=== PATIENT | female | born 1985 | race Two or more races ===

== ENCOUNTER 2023-06-27 06:26 | Inpatient (IN) | payer OTHER ==
[~2023-06-27] VITALS: Ht 160 cm; Wt 68.0 kg
[2023-06-27] MEDS ORDERED: FOLIC ACID0.8 M1 PO (06:43)
[2023-06-27] MEDS ORDERED: RINGERS SOLUTION,LACTATED 1,000 ML IV STA (07:19)
[2023-06-27 07:39] LABS: HEMATOCRIT 36.1 % (36.0-45.00); HEMOGLOBIN 12.6 g/dL (12.0-15.00); MEAN CELL VOLUME 91.3 fL (80.00-100.00); MEAN CORPUSCULAR HEMOGLOBIN 31.9 pg (27.00-32.0); MEAN CORPUSCULAR HGB CONC 34.9 g/dl (32.0-36.0); PLATELET COUNT 194 K/uL (150-450); RED BLOOD COUNT 3.96 M/uL (4.00-6.00)
[2023-06-27 08:34] LABS: ALBUMIN 4.1 gm/dL (3.4-5.0); BILIRUBIN TOTAL 0.35 mg/dL (0.3-1.2); CALCIUM 9.5 mg/dL (8.5-10.1); CREATININE SERUM 0.68 mg/dL (0.55-1.02); GFR 96.32; GLOBULINA 3.7 G/DL (2.4-3.5); POTASSIUM 3.9 mEq/L (3.5-5.1); TOTAL PROTEIN 7.8 gm/dL (6.4-8.2)
[2023-06-27] MEDS ORDERED: CEFAZOLIN SODIUM 1,000 MG VIAL IV ONE (12:30)
[2023-06-27 13:23] LABS: INR 1.06; PARTIAL THROMBOPLASTIN TIME 25.3 SECONDS (22.0-34.0); PROTHROMBIN TIME 11.1 SECONDS (9.0-11.5)
[2023-06-27] MEDS ORDERED: MEPERIDINE HCL/PF 50 MG/ML VIAL IM SCH (21:08)
[2023-06-27] MEDS ORDERED: PROMETHAZINE HCL 25 MG/ML AMPUL IM SCH (21:08)
[2023-06-28 09:38] LABS: HEMATOCRIT 31.9 % (36.0-45.00); HEMOGLOBIN 11.1 g/dL (12.0-15.00); MEAN CELL VOLUME 91.5 fL (80.00-100.00); MEAN CORPUSCULAR HEMOGLOBIN 31.9 pg (27.00-32.0); MEAN CORPUSCULAR HGB CONC 34.9 g/dl (32.0-36.0); PLATELET COUNT 178 K/uL (150-450); RED BLOOD COUNT 3.49 M/uL (4.00-6.00); RED CELL DISTRIBUTION WIDTH 12.7 % (11.5-14.5)
[2023-06-28] MEDS ORDERED: OxyCODONE HCL/APAP UD (PERCOCET) PO PRN (10:00)
== END 2023-06-29 17:11 | disposition home or self-care (01) | DRG 819 ==
LOC: ER 06:27 → O/R 18:44 → OB/GYN 18:44
PROVIDERS: Emergency Medicine; ADMIT Obstetrics & Gynecology Obstetrics; ATTEND Obstetrics & Gynecology Obstetrics
PROC: 10D20ZZ Extraction of Products of Conception, Ectopic, Open Approach (ICD-10-PCS; 2023-06-27)
PROC: 0UT60ZZ Resection of Left Fallopian Tube, Open Approach (ICD-10-PCS; principal; 2023-06-27 20:15)
DX: O00.102 Left tubal pregnancy without intrauterine pregnancy (principal); Z20.822 Contact with and (suspected) exposure to COVID-19

== ENCOUNTER 2023-09-26 09:28 | Outpatient (CLI) | payer OTHER ==
[~2023-09-26 09:28] MED LIST: FOLIC ACID0.8 M1 PO
== END 2023-09-26 09:32 | disposition home or self-care (01) ==
LOC: RX STUDY 09:28
PROVIDERS: ATTEND Obstetrics & Gynecology
DX: N70.01 Acute salpingitis (principal)